=== PATIENT | female | born 1990 | race Caucasian/White ===

== ENCOUNTER 2020-03-28 13:34 | Emergency (ER) | payer SELFPAY ==
[2020-03-28] MEDS ORDERED: Sodium Chloride 0.9% 10 ML Syringe FLUSH PRN (14:17)
--- NOTE | 2020-03-28 14:28 | EDM.PDOC ---
ED HPI GENERAL MEDICAL PROBLEM - General Chief Complaint: Abdominal Pain Stated Complaint: BLOOD CLOT? Time Seen by Provider: 03/28/20 14:04 Source of Information: Reports: Patient, Old Records History Limitations: Reports: No Limitations - History of Present Illness INITIAL COMMENTS - FREE TEXT/NARRATIVE: Adrianna is a 29-year-old female presenting to the ED for evaluation of upper abdominal pain, nausea, and hematemesis that started last night. Patient has a history significant for a pack a day of smoking as well as significant daily alcohol intake. The patient tried to minimize her alcohol use by saying that she took a couple shots a day, however, she was corrected by the person who is accompanying her who stated that she is a heavy alcohol user daily. 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 It does appear that the patient had follow-up for this but canceled her follow-up appointments. The last notation stated that the patient was going to follow-up in [place] but again there are no records on Care Everywhere for this transpiring. The patient denies any fever, chills, shortness of breath or cough, loss of taste or smell. She has had some loose stools but denies any tarry or melenic stools. Her last bowel movement was yesterday before the onset of her hematemesis. She does report having 4 episodes of hematemesis to last night into this morning. She denies any coffee-ground emesis but rather states that they were blood-streaked emesis. Because of her significant alcohol history this always raises concern for portal hypertension and esophageal varices. Lower Abdomen Pain Score (Numeric/FACES): 6 - Related Data Allergies Allergy/AdvReac Type Severity Reaction Status Date / Time cefaclor [From [facility]] Allergy Rash Verified 03/28/20 13:54 Home Meds: Home Meds Albuterol Sulfate [Albuterol Sulfate Hfa] 2 puff IH Q4H PRN 03/28/20 [History] Past Medical History Respiratory History: Reports: Asthma Genitourinary History: Reports: UTI, Recurrent [employer]PERATOR History: Reports: Psychiatric History: Reports: Addiction, Anxiety, Depression Endocrine/Metabolic History: Reports: Obesity/BMI 30+ - Past Surgical History GI Surgical History: Reports: Cholecystectomy Female Surgical History: Reports: Section Social & Family History - Tobacco Use Tobacco Use Status *Q: Current Every Day Tobacco User Years of Tobacco use: 10 Packs/Tins Daily: 1 Used Tobacco, but Quit: No Second Hand Smoke Exposure: Yes - Caffeine Use Caffeine Use: Reports: None - Alcohol Use Days Per Week of Alcohol Use: 7 Number of Drinks Per Day: 5 Total Drinks Per Week: 35 - Recreational Drug Use Recreational Drug Use: Yes Drug Use in Last 12 Months: No Recreational Drug Type: Reports: Fentanyl, Methamphetamine Recreational Drug Use Frequency: Not Used In Over 2 Months ED ROS GENERAL - Review of Systems Review Of Systems: See Below Constitutional: Reports: No Symptoms HEENT: Reports: No Symptoms Respiratory: Reports: No Symptoms Cardiovascular: Reports: No Symptoms Endocrine: Reports: No Symptoms GI/Abdominal: Reports: Abdominal Pain (Upper abdominal pain that is sharp and stabbing since last night.), Hematemesis, Nausea, Vomiting. Denies: Constipation, Diarrhea, Hematochezia, Melena : Reports: No Symptoms Musculoskeletal: Reports: No Symptoms Skin: Reports: No Symptoms Neurological: Reports: No Symptoms Psychiatric: Reports: No Symptoms Hematologic/Lymphatic: Reports: No Symptoms Immunologic: Reports: No Symptoms ED EXAM, GI/ABD - Physical Exam Exam: See Below Exam Limited By: No Limitations General Appearance: Alert, WD/WN, No Apparent Distress, Obese. No: Anxious, Lethargic, Active Emesis Eyes: Bilateral: EOMI Throat/Mouth: Normal Inspection, Normal Lips, Normal Teeth, Normal Oropharynx, Normal Voice, No Airway Compromise Head: Atraumatic, Normocephalic Neck: Normal Inspection, Supple, Non-Tender, Full Range of Motion Respiratory/Chest: No Respiratory Distress, Lungs Clear, Normal Breath Sounds, Chest Non-Tender Cardiovascular: Normal Peripheral Pulses, No Edema, No JVD, No Murmur, Tachycardia GI/Abdominal Exam: Soft, Tender (Upper abdominal tenderness without guarding or rebound), Abnormal Bowel Sounds (Diminished bowel sounds). No: Guarding, Rigid, Rebound Back Exam: Normal Inspection, Full Range of Motion, NT Extremities: Normal Inspection, Normal Range of Motion, Non-Tender, No Pedal Edema Neurological: Alert, Oriented, Normal Cognition, No Motor/Sensory Deficits Psychiatric: Normal Affect, Normal Mood Skin Exam: Warm, Dry, Intact, Normal Color. No: Jaundice Lymphatic: No Adenopathy Course - Vital Signs Last Recorded V/S: Last Vital Signs Temp 36.7 C 03/28/20 14:01 Pulse 126 H 03/28/20 16:44 Resp 16 03/28/20 14:01 BP 113/79 03/28/20 16:44 Pulse Ox 97 03/28/20 16:44 - Orders/Labs/Meds Orders: Active Orders 24 hr Category Date Time Status Sodium Chloride 0.9% [Normal Saline] 86 ml Med 03/28/20 14:45 Active IV ASDIRECTED Sodium Chloride 0.9% [Saline Flush] Med 03/28/20 14:17 Active 10 ml FLUSH ASDIRECTED PRN Saline Lock Insert [OM.PC] Routine Oth 03/28/20 14:17 Ordered Medication Orders Sodium Chloride (Normal Saline) 86 mls @ 3.5 mls/sec IV ASDIRECTED CITLALI Last Admin: 03/28/20 15:58 Dose: 3.5 mls/sec Documented by: LONNY Sodium Chloride (Saline Flush) 10 ml FLUSH ASDIRECTED PRN PRN Reason: Keep Vein Open Last Admin: 03/28/20 15:58 Dose: 10 ml Documented by: LONNY Labs: Laboratory Tests 03/28/20 03/28/20 03/28/20 Range/Units 14:17 14:17 14:17 WBC 6.6 (4.5-11.0) K/uL RBC 6.09 H (3.30-5.50) M/uL Hgb 19.8 H* D (12.0-15.0) g/dL Hct 56.6 H (36.0-48.0) % MCV 93 (80-98) fL MCH 33 H (27-31) pg MCHC 35 (32-36) % Plt Count 140 L (150-400) K/uL Neut % (Auto) 85 H (36-66) % Lymph % (Auto) 7 L (24-44) % [place] % (Auto) 2 (2-6) % Eos % (Auto) 6 H (2-4) % Baso % (Auto) 1 (0-1) % PT 14.4 H (9.5-12.0) sec INR 1.33 H (0.80-1.20) APTT 24.4 L (27.0-36.0) sec Sodium 135 L (140-148) mmol/L Potassium 3.0 L (3.6-5.2) mmol/L Chloride 94 L (100-108) mmol/L Carbon Dioxide 28 (21-32) mmol/L Anion Gap 16.0 H (5.0-14.0) mmol/L BUN 10 (7-18) mg/dL Creatinine 1.2 H (0.6-1.0) mg/dL Est Cr Clr Drug Dosing 50.58 mL/min Estimated GFR (MDRD) 54 L (>60) Glucose 107 H (74-106) mg/dL Calcium 8.3 L (8.5-10.1) mg/dL Total Bilirubin 2.9 H D (0.2-1.0) mg/dL AST 714 H D (15-37) U/L ALT 661 H (12-78) U/L Alkaline Phosphatase 158 H D (46-116) U/L C-Reactive Protein 16.16 H (0.0-0.3) mg/dL Total Protein 7.2 (6.4-8.2) g/dL Albumin 3.2 L (3.4-5.0) g/dL Globulin 4.0 H (2.3-3.5) g/dL Albumin/Globulin Ratio 0.8 L (1.2-2.2) Lipase 54 L (73-393) U/L Urine Color (YELLOW) Urine Appearance (CLEAR) Urine pH (5.0-8.0) Ur Specific [place] (1.008-1.030) Urine Protein (NEGATIVE) mg/dL Urine Glucose (UA) (NEGATIVE) mg/dL Urine Ketones (NEGATIVE) mg/dL Urine Occult Blood (NEGATIVE) Urine Nitrite (NEGATIVE) Urine Bilirubin (NEGATIVE) Urine Urobilinogen (0.2-1.0) EU/dL Ur Leukocyte Esterase (NEGATIVE) Urine RBC (0-5) Urine WBC (0-5) Ur Epithelial Cells Amorphous Sediment Urine Bacteria Urine Mucus Urine HCG, Qual Ethyl Alcohol mg/dL 03/28/20 03/28/20 03/28/20 Range/Units 14:17 15:30 15:30 WBC (4.5-11.0) K/uL RBC (3.30-5.50) M/uL Hgb (12.0-15.0) g/dL Hct (36.0-48.0) % MCV (80-98) fL MCH (27-31) pg MCHC (32-36) % Plt Count (150-400) K/uL Neut % (Auto) (36-66) % Lymph % (Auto) (24-44) % [place] % (Auto) (2-6) % Eos % (Auto) (2-4) % Baso % (Auto) (0-1) % PT (9.5-12.0) sec INR (0.80-1.20) APTT (27.0-36.0) sec Sodium (140-148) mmol/L Potassium (3.6-5.2) mmol/L Chloride (100-108) mmol/L Carbon Dioxide (21-32) mmol/L Anion Gap (5.0-14.0) mmol/L BUN (7-18) mg/dL Creatinine (0.6-1.0) mg/dL Est Cr Clr Drug Dosing mL/min Estimated GFR (MDRD) (>60) Glucose (74-106) mg/dL Calcium (8.5-10.1) mg/dL Total Bilirubin (0.2-1.0) mg/dL AST (15-37) U/L ALT (12-78) U/L Alkaline Phosphatase (46-116) U/L C-Reactive Protein (0.0-0.3) mg/dL Total Protein (6.4-8.2) g/dL Albumin (3.4-5.0) g/dL Globulin (2.3-3.5) g/dL Albumin/Globulin Ratio (1.2-2.2) Lipase (73-393) U/L Urine Color [place] A (YELLOW) Urine Appearance Clear (CLEAR) Urine pH 5.5 (5.0-8.0) Ur Specific [place] >= 1.030 (1.008-1.030) Urine Protein >=300 H (NEGATIVE) mg/dL Urine Glucose (UA) 100 H (NEGATIVE) mg/dL Urine Ketones 15 H (NEGATIVE) mg/dL Urine Occult Blood Trace-intact H (NEGATIVE) Urine Nitrite Negative (NEGATIVE) Urine Bilirubin Large H (NEGATIVE) Urine Urobilinogen >=8.0 H (0.2-1.0) EU/dL Ur Leukocyte Esterase Negative (NEGATIVE) Urine RBC 5-10 H (0-5) Urine WBC 30-40 H (0-5) Ur Epithelial Cells Many Amorphous Sediment Not seen Urine Bacteria Many Urine Mucus Few Urine HCG, Qual Negative Ethyl Alcohol < 3 mg/dL Meds: Medications Generic Name Dose Route Start Last Admin Trade Name Freq PRN Reason Stop Dose Admin Sodium Chloride 86 mls @ 3.5 mls/sec 03/28/20 14:45 03/28/20 15:58 Normal Saline IV 3.5 mls/sec ASDIRECTED CITLALI Administration Sodium Chloride 10 ml 03/28/20 14:17 03/28/20 15:58 Saline Flush FLUSH 10 ml ASDIRECTED PRN Administration Keep Vein Open Discontinued Medications Generic Name Dose Route Start Last Admin Trade Name Freq PRN Reason Stop Dose Admin Iopamidol 150 ml 03/28/20 14:34 03/28/20 15:58 Isovue-300 (61%) IV 03/28/20 14:35 150 ml . DIRECTED ONE Administration - Radiology Interpretation Free Text/Narrative:: I reviewed the findings of the CT scan as well as the results from her labs showing multiple things including polycythemia rubra vera, steatohepatitis, marked elevation in her transaminases, and elevation of her bilirubin likely related to her chronic heavy alcohol use. It also showed significant retroperitoneal lymphadenopathy. I recommended transfer the patient to [facility] for further work-up especially concerning the hematemesis. - Re-Assessments/Exams Free Text/Narrative Re-Assessment/Exam: 03/28/20 16:53 I reviewed the results of the CT and labs with the patient showing significant elevation of her transaminases and bilirubin as well as lymphadenopathy in the retroperitoneum. She has significant findings for polycythemia rubra vera with a hemoglobin of 19.8 and a hematocrit of 56.6. She has steatosis of the liver. Also concerning is the repeated hematemesis w orrisome for possible esophageal varices. I discussed transfer the patient to [facility] for further evaluation. The patient became agitated and decided against transfer demanding to be released. I discussed that this would be AGAINST MEDICAL ADVICE and she accepts the risks. I was francoise with her that if she continues to drink at this rate that she will likely develop irreparable damage to her liver and may suffer consequences from untreated esophageal varices and portal hypertension. I strongly advocated she abstain from further alcohol use. The IV was removed and the patient was discharged AGAINST MEDICAL ADVICE. Departure - Departure Time of Disposition: 17:01 Disposition: Against Medical Advice 07 Condition: Fair Clinical Impression: Polycythemia rubra vera, Acute upper abdominal pain, Hematemesis with nausea, Alcohol abuse, Elevated transaminase level, Retroperitoneal lymphadenopathy - Discharge Information *PRESCRIPTION DRUG MONITORING PROGRAM REVIEWED*: Not Applicable *COPY OF PRESCRIPTION DRUG MONITORING REPORT IN PATIENT HECTOR: Not Applicable Instructions: Alcohol Use Disorder, Abdominal Pain, Adult, [id number], Hematemesis Referrals: PCP,None [Primary Care Provider] - Forms: ED Department Discharge, Refusal of Care AMA Sepsis Event Note (ED) - Evaluation Sepsis Screening Result: No Definite Risk - Focused Exam Vital Signs: Vital Signs Temp Pulse Resp BP Pulse Ox 03/28/20 16:44 126 H 113/79 97 03/28/20 14:01 36.7 C 136 H 16 96/72 94 L 03/28/20 13:50 36.7 C 136 H 16 96/72 94 L - Problem List & Annotations (1) Polycythemia rubra vera SNOMED Code(s): 816894170 Code(s): D45 - POLYCYTHEMIA VERA Status: Acute Priority: High Current Visit: Yes (2) Acute upper abdominal pain SNOMED Code(s): 38522533, 551887205 Code(s): R10.10 - UPPER ABDOMINAL PAIN, UNSPECIFIED Status: Acute Priority: High Current Visit: Yes (3) Hematemesis with nausea SNOMED Code(s): 1445650, 85671657 Code(s): K92.0 - HEMATEMESIS Status: Acute Priority: High Current Visit: Yes (4) Alcohol abuse SNOMED Code(s): 56539568 Code(s): F10.10 - ALCOHOL ABUSE, UNCOMPLICATED Status: Acute Priority: High Current Visit: Yes (5) Elevated transaminase level SNOMED Code(s): 902258171, 814646310 Code(s): R74.01 - ELEVATION OF LEVELS OF LIVER TRANSAMINASE LEVELS Status: Acute Priority: High Current Visit: Yes (6) Retroperitoneal lymphadenopathy SNOMED Code(s): 939780697 Code(s): R59.0 - LOCALIZED ENLARGED LYMPH NODES Status: Acute Priority: High Current Visit: Yes - Problem List Review Problem List Initiated/Reviewed/Updated: Yes - My Orders Last 24 Hours: My Active Orders 03/28/20 14:17 Sodium Chloride 0.9% [Saline Flush] 10 ml FLUSH ASDIRECTED PRN Saline Lock Insert [OM.PC] Routine 03/28/20 14:45 Sodium Chloride 0.9% [Normal Saline] 86 ml IV ASDIRECTED - Assessment/Plan Last 24 Hours: My Active Orders 03/28/20 14:17 Sodium Chloride 0.9% [Saline Flush] 10 ml FLUSH ASDIRECTED PRN Saline Lock Insert [OM.PC] Routine 03/28/20 14:45 Sodium Chloride 0.9% [Normal Saline] 86 ml IV ASDIRECTED
[2020-03-28] MEDS ORDERED: Iopamidol 612 MG/ML 150 ML Bottle IV ONE (14:34)
[2020-03-28] MEDS ORDERED: Sodium Chloride 0.9% 86 ML IV SCH (14:45)
--- NOTE | 2020-03-28 16:39 | CRLCT ---
INDICATION: Abdominal pain COMPARISON: None TECHNIQUE: CT examination of the abdomen and pelvis was performed following the uneventful intravenous administration of 150 cc of Isovue-300. Thin section axial images were obtained from the lung bases through the pubic symphysis. Oral contrast was not administered. Please note that all CT scans at this facility use dose modulation, iterative reconstruction, and/or weight-based dosing when appropriate to reduce radiation dose to as low as reasonably achievable. FINDINGS: LUNG BASES: The lung bases as visualized appear normal.The heart size is normal at the lung bases. LIVER/BILIARY SYSTEM:Hepatic steatosis. No focal mass or biliary ductal dilatation. Status post cholecystectomy. ADRENALS: Normal KIDNEYS, URETERS and BLADDER:The kidneys appear normal. No visible mass, calculus or hydronephrosis. The ureters and bladder as visualized appear normal. SPLEEN:Normal appearance. PANCREAS: Appears normal. RETROPERITONEUM and MESENTERY: There are abnormal lymph nodes in the retroperitoneum. These extend from about the gastrohepatic ligament through the aortic bifurcation. These are more prominent due to the number rather than their size. These are usually reactive but a lymphoproliferative disorder is possible. Clinical correlation and additional imaging follow-up is advised . GASTROINTESTINAL SYSTEM: There is no evidence of diverticulitis, colitis, mechanical obstruction, or appendicitis. The small bowel as visualized appears normal. PELVIS: No mass, adenopathy or free fluid. OSSEOUS STRUCTURES and ABDOMINAL WALL: There is an age-appropriate appearance of the osseous structures.No significant abdominal wall defect. OTHER: No free fluid or free air. IMPRESSION: 1. Status post cholecystectomy. 2. No clearly visible etiology for abdominal pain. 3. Abnormal retroperitoneal lymph nodes. These are more prominent due to their number rather than their size. Statistically these are most likely reactive though clinical correlation and follow-up imaging is advised. Please note that all CT scans at this facility use dose modulation, iterative reconstruction, and/or weight-based dosing when appropriate to reduce radiation dose to as low as reasonably achievable. Dictated by Rodney Bowens MD @ Mar 28 2020 4:31PM Signed by Dr. Rodney Bowens @ Mar 28 2020 4:37PM
[2020-03-28 16:45] VITALS: BP 113/79; PULSE 126
== END 2020-03-28 17:21 | disposition left against medical advice (07) ==
LOC: JP.ED 13:34
DX: D45 Polycythemia vera (principal); R10.10 Upper abdominal pain, unspecified; K92.0 Hematemesis; F10.10 Alcohol abuse, uncomplicated; R74.01 Elevation of levels of liver transaminase levels; R59.0 Localized enlarged lymph nodes; J45.909 Unspecified asthma, uncomplicated; E66.9 Obesity, unspecified; Z68.42 Body mass index [BMI] 45.0-49.9, adult; F17.210 Nicotine dependence, cigarettes, uncomplicated
CPT/HCPCS: 36415; 74177; 80053; 80307; 81001; 81025; 83690; 85025; 85610; 85730; 86140; 99284; Q9967

== ENCOUNTER 2022-01-11 17:40 | Emergency (ER) | payer SELFPAY | END 2022-01-11 18:46 | disposition left against medical advice (07) | LOC: JP.ED 17:40 | DX: Z53.21 Procedure and treatment not carried out due to patient leaving prior to being seen by health care provider (principal) ==